=== PATIENT | female | born 1970 | race Caucasian/White ===

== ENCOUNTER 2017-05-26 02:24 | Observation (INO) | payer BC ==
[2017-05-26] MEDS ORDERED: METHYLPREDNISOLONE SOD SUCC/PF 40 MG/ML VIAL IV ONE (02:35)
[2017-05-26] MEDS ORDERED: FAMOTIDINE 10 MG/ML VIAL IV ONE ×2 (02:35→02:45)
[2017-05-26] MEDS ORDERED: diphenhydrAMINE HCL 50 MG/ML VIAL IV ONE ×2 (02:35→02:58)
[2017-05-26] MEDS ORDERED: NORMAL SALINE 1,000 ML IV ONE ×2 (02:36→04:25)
[2017-05-26] MEDS ORDERED: METHYLPREDNISOLONE SOD SUCC/PF 125 MG/2 ML VIAL ONE (02:45)
[2017-05-26] MEDS ORDERED: diphenhydrAMINE HCL 50 MG/ML VIAL ONE ×2 (02:45→02:57)
[2017-05-26] MEDS ORDERED: EPINEPHrine 1 MG/ML AMPUL SC ONE (03:05)
--- NOTE | 2017-05-26 03:05 | ERNOTE ---
Allergy Symptoms - ER Date of Service: 05/26/17 Presenting Symptoms: face swelling Time Seen by Provider: 05/26/17 02:35 Source: patient Exam Limitations: no limitations Immunizations: IMMUNIZATION HX Immunizations Up to Date Yes History of Influenza Vaccine Yes Hx Pneumococcal Vaccination No Allergies/Adverse Reactions: Allergies red dye Adverse Reaction (Mild, Verified 05/26/17 02:28) Hives Sulfa (Sulfonamide Antibiotics) [Sulfa(Sulfonamide Antibiotics)] Adverse Reaction (Mild, Verified 05/26/17 02:28) RASH Home Medications: HOME MEDICATIONS Multivitamin [One Daily Essential] 1 each PO DAILY 02/01/16 [Last Taken Unknown] Tolterodine Tartrate [Detrol LA] 8 mg PO DAILY 02/01/16 [Last Taken Unknown] Doxycycline Hyclate [Morgidox] 100 mg PO DAILY 05/26/17 [Last Taken Unknown] - History of Present Illness Narrative: Woke up at 1:11 AM today with severe itching all over and swelling of her lip. She is not sure what she ingested and she is not sure what she is allergic to. The symptoms woke her up. Subsequently she presented to the emergency room Review of Systems - Review of Systems Constitutional: Present: no symptoms reported, other - itching all over EYE: Present: no symptoms reported ENT: Present: other - swelling of the lip Skin: Present: other - patient has hives all over her back and on her face she does have swelling of her left aspect of her lower lip there is a significant amount of edema and redness also underneath both eyes. - Patient's Past Medical History Patient History - Medical: No pertinent hx Patient History - Cardiac/Respiratory: No pertinent hx Patient History - Cancer: No Hx of Cancer Patient History - Surgical Procedures: Cholecystectomy, Tubal Ligation, T & A Patient History - Other: None LMP (females 10-50): 1 month - Social History Living Situations: home Psych History: Hx of Anxiety Smoking Status: Former smoker Have you smoked in the past 12 months: No Do you dip or chew tobacco: No Alcohol Use: occasionally Drug Use: none - Immunizations Immunizations Up to Date: Yes Hx Pneumococcal Vaccination: No History of Influenza Vaccine: Yes ED Progress - Vital Signs Patient's Vital Signs:: I have reviewed the patient's vital signs. Vital Signs: Vital Signs 11/13/17 11/13/17 02:29 02:34 Temperature 36.5 C Pulse Rate 91 Respiratory 20 20 Rate Blood Pressure 127/85 O2 Sat by Pulse 100 100 Oximetry - Progress/Reassessment Chief Complaint: Allergic Reaction Plan - Plan Plan: I first saw this patient is 0235, at that time I believed this patient was having a mild reaction to something with manifestation of swelling on the lower lip and hives and swelling underneath both eyes. Patient initially had a very good patent airway. Appropriate medication such as IV Pepcid and IV Solu- Medrol and IV Benadryl was written for. Approximately 0300 patient started coughing and clearing her throat repeat examination her airway with slightly more compromised than before manifested as of swelling in the posterior pharynx and the tongue. This examiner immediately contacted anesthesia services and patient was intubated in anticipation of worsening clinical course, as this allergic reaction has happened relatively fast. The patient's compromise of her airway was progressing despite epinephrine subcutaneous, Solu-Medrol, Pepcid , and Benadryl IV. Patient was subsequently successfully intubated by our anesthesia services. Also our hospitalist with consultation in regards to this patient and patient will be admitted for management of airway. Departure Clinical Impression: Airway compromise Allergic reaction Qualifiers: Encounter type: initial encounter Qualified Code(s): T78.40XA - Allergy, unspecified, initial encounter - Departure Disposition: [facility] Condition: Stable
[2017-05-26] MEDS ORDERED: EPINEPHrine 1 MG/ML AMPUL ONE (03:06)
[2017-05-26] MEDS ORDERED: MIDAZOLAM HCL/PF 5 MG/ML VIAL ONE ×2 (03:17→04:19)
[2017-05-26] MEDS ORDERED: LIDOCAINE HCL 20 ML VIAL ONE (03:20)
[2017-05-26 03:24] LABS: Hematocrit 39.7 % (37.0-47.0); Hemoglobin 13.4 gm/dL (12.5-16.0); Mean Cell Volume 87.4 fl (78-100); Mean Corpuscular Hemoglobin 29.5 pg (27-31); Mean Corpuscular Hgb Conc 33.8 g/dl (32-36); Mean Platelet Volume 11.7 fl (6.0-9.5); Neutrophil # 4.6 K/mm3 (1.3-6.0); Neutrophil % 44.2 % (42-75.0); Platelet Count 250 K/mm3 (150-450); Red Blood Count 4.54 M/mm3 (4.2-5.4); Red Cell Distribution Width 14.3 % (11.5-14.0); White Blood Count 10.5 K/mm3 (4.0-10.5)
[2017-05-26] MEDS ORDERED: PROPOFOL VIAL IV ONE ×2 (03:38→04:24)
[2017-05-26 03:43] LABS: Albumin * 3.5 gm/dl (3.4-5.0); BUN/Creatinine Ratio 23.1 (9.0-21.6); Bilirubin, Total 0.5 mg/dL (0.0-1.1); Ca. Corrected For Albumin 8.3 mg/dL (8.4-10.2); Calcium * 8.2 mg/dL (7.9-10.9); Total Protein 6.3 gm/dL (6.2-8.2)
[2017-05-26 03:48] LABS: Anion Gap 13.2 mmol/L (6.8-13.8); Potassium 3.2 mmol/L (3.4-4.6)
--- NOTE | 2017-05-26 04:11 | OR ---
Anesthesia Procedure Note - Anesthesia Procedure Note Date of Service: 05/26/17 Narrative: Vital Signs - Last Taken Temp 36.5 C 05/26/17 02:29 Pulse 110 H 05/26/17 03:21 Resp 15 05/26/17 03:21 BP 125/80 05/26/17 03:21 Pulse Ox 100 05/26/17 03:21 05/26/17 04:01 Procedure: Endotracheal intubation Brief history: I was called to the emergency department with a request for emergency endotracheal length patient is a patient experiencing a severe allergic reaction. Ms. Devine awoke this morning at 1:30 with facial swelling and believed she needed to be treated in the emergency department for an allergic reaction. On arrival she had circumoral swelling and some swelling of the tongue. Her symptoms have progressed since arrival to the emergency department and assessment of the emergency department physician weapons officer naval activity related increasing circumoral tongue swelling with the change in mental hilario score. Recently she has developed an occasional cough. The patient was alert and the procedure was described to her. Procedure: After preoxygenation with 100% oxygen per Jah the patient was induced with 50 mg of lidocaine followed by 200 mg of propofol and a total of 80 mg of succinylcholine which includes a pretreatment dose of 5 mg. There were no fasciculations noted and the patient was intubated #7 endotracheal tube using a #3 kaleidoscope blade without difficulty. CO2 was present by both the chemical and later in-line monitor and the endotracheal tube was secured at 20 cm to teeth. A chest x-ray was ordered for confirmation. The patient did regain respiratory effort and was breathing of her own accord after a short period of time at which point she was placed on humidified oxygen per T piece. Procedure was then discussed with the emergency room physician the hospitalist weapons officer naval activity and the who, after the procedure was completed, arrived in the emergency department. Disposition: The patient was then left in the care of emergency department attending and nurses directly attending her care. Her vital signs were stable and spontaneous respirations were adequate.
[2017-05-26] MEDS ORDERED: PROPOFOL 1,000 MG/100 ML PIGGYBACK IV PRN (04:14)
[2017-05-26] MEDS ORDERED: MIDAZOLAM HCL/PF 1 MG/ML VIAL IV ONE (04:25)
[2017-05-26] MEDS ORDERED: diphenhydrAMINE HCL 50 MG/ML VIAL IV PRN (05:21)
[2017-05-26] MEDS ORDERED: BENZOCAINE/MENTHOL 16 EACH BOX MM PRN (05:26)
[2017-05-26] MEDS ORDERED: METHYLPREDNISOLONE SOD SUCC 60 MG in WATER FOR INJ.,BACTERIOSTATIC 0 ML IV SCH (05:30)
[2017-05-26] MEDS ORDERED: FAMOTIDINE 20 MG in DEXTROSE 5 % IN WATER 100 ML IV SCH ×2 (05:30)
[2017-05-26] MEDS ORDERED: METHYLPREDNISOLONE SOD SUCC/PF 125 MG/2 ML VIAL IV SCH (05:45)
--- NOTE | 2017-05-26 06:09 | HP ---
<Adama Reyes - Last Filed: 05/26/17 06:11> Chief Complaint - Chief Complaint Date of Service: 05/26/17 Time of Service: 05:32 Chief Complaint: Hives and oral swelling History of Present Illness: 47 years old female adm to the hospital from ER with reports of hives, swelling underneath the eyes and mouth. PMH significant for rosacea previous allergic reaction and Overactive bladder. Information obtained from ER nurse and pt who is at the bedside. Pt was awaken by constant itching and took Benadryl 50mg before driving herself to the ER. While in ER she was given solumedrol, Pepcid and Benadryl. Upon further re-assessment, pt was observed to have progression of her swelling to the lips, tongue and eyes. per pt have allergy to red dye, before super she eat hamburger meat that had red dye for used as preservative. she was intubated in ER then transferred to the unit. Plan of care discussed with pt he verbalized understanding and agrees. - Patient's Past Medical History Patient History - Medical: Anxiety, Other - over active bladder, rosacea Patient History - Cardiac/Respiratory: No pertinent hx Patient History - Cancer: No Hx of Cancer Patient History - Surgical Procedures: Cholecystectomy, Tubal Ligation, T & A Patient History - Other: None LMP (females 10-50): 1 month - Social History Living Situations: spouse Psych History: Hx of Anxiety Smoking Status: Former smoker Have you smoked in the past 12 months: No Do you dip or chew tobacco: No Alcohol Use: occasionally Drug Use: none - Immunizations Immunizations Up to Date: Yes Hx Pneumococcal Vaccination: No History of Influenza Vaccine: Yes Review Of Systems (GEN) - Review of Systems Generalized/Overall Review: Present: No Symptoms Reported EENTM: Present: Throat Swelling Respiratory: Present: No Symptoms Reported Cardiac: Present: No Symptoms Reported Abdominal: Present: No Symptoms Reported Genitourinary: Present: No Symptoms Reported Musculoskeletal: Present: No Symptoms Reported Neurological: Present: Anxiety Skin: Present: No Symptoms Reported Endocrine: Present: No Symptoms Reported Immunizations: IMMUNIZATION HX Immunizations Up to Date Yes History of Influenza Vaccine Yes Hx Pneumococcal Vaccination No Allergies/Adverse Reactions: Allergies Allergy/AdvReac Type Severity Reaction Status Date / Time red dye AdvReac Mild Hives Verified 05/26/17 02:28 Sulfa (Sulfonamide AdvReac Mild RASH Verified 05/26/17 02:28 Antibiotics) [Sulfa(Sulfonamide Antibiotics)] Home Medications: HOME MEDICATIONS Multivitamin [One Daily Essential] 1 each PO DAILY 02/01/16 [Last Taken Unknown] Tolterodine Tartrate [Detrol LA] 8 mg PO DAILY 02/01/16 [Last Taken Unknown] Diphenhydramine HCl 25 mg PO ONCE #2 capsule 05/26/17 [Last Taken Unknown] Doxycycline Hyclate [Morgidox] 100 mg PO DAILY 05/26/17 [Last Taken Unknown] EPINEPHrine [Epipen] 0.3 mg IJ ONCE #1 auto.injct 05/26/17 [Last Taken Unknown] predniSONE [Deltasone] 20 mg PO ONCE #2 tablet 05/26/17 [Last Taken Unknown] Exam - Exam Vital Signs: Vital Signs - Last Taken Temp 36.5 C 05/26/17 02:29 Pulse 99 05/26/17 04:14 Resp 21 H 05/26/17 04:14 BP 120/59 05/26/17 04:14 Pulse Ox 100 05/26/17 04:14 Constitutional: Present: Alert, Lethargic, Young ENT Exam: Present: hearing grossly normal, other - Endothracheal tube 20cm Eye Exam: bilateral eye: normal inspection Neck: Present: full range of motion Back Exam: Present: normal inspection, no CVA tenderness Respiratory: Present: chest non-tender Cardiovascular/Chest: Present: normal peripheral pulses, regular rate, rhythm, no chest tenderness, no edema Peripheral Pulses: dorsalis-pedis (R): 3+, dorsalis-pedis (L): 3+ Abdomen: Present: Normal bowel sounds, soft, nontender, nondistended, no rebound tenderness Extremity: Present: normal range of motion, non-tender, normal inspection, no pedal edema Skin Exam: Present: warm/dry Neurologic: Present: alert Eye contact: Present: cooperative, good eye contact Thoughts: Present: normal thought pattern Diagnostic Studies: Abnormal Lab Results 05/26/17 05/26/17 Range/Units 03:25 03:25 RDW 14.3 H (11.5-14.0) % MPV 11.7 H (6.0-9.5) fl Immature Gran % (Auto) 0.70 H (0.001-0.429) % Immature Gran # (Auto) 0.07 H (0.000-0.0310) K/mm3 Lymphocytes # 5.0 H (1.5-3.5) k/mm3 Sodium 144 H (132-142) mmol/L Plasma Sodium 144 H (130-142) mmol/L Potassium 3.2 L (3.4-4.6) mmol/L Chloride 107 H (97-106) mmol/L BUN 25 H (3-23) mg/dL Est GFR (Non-Af Amer) 58 L (60-130) mL/min BUN/Creatinine Ratio 23.1 H (9.0-21.6) Calcium Adj for Albumin 8.3 L (8.4-10.2) mg/dL Alkaline Phosphatase 49 L (50-170) U/L Laboratory Results WBC 10.5 K/mm3 (4.0-10.5) 05/26/17 03:25 RBC 4.54 M/mm3 (4.2-5.4) 05/26/17 03:25 Hgb 13.4 gm/dL (12.5-16.0) 05/26/17 03:25 Hct 39.7 % (37.0-47.0) 05/26/17 03:25 MCV 87.4 fl (78-100) 05/26/17 03:25 MCH 29.5 pg (27-31) 05/26/17 03:25 MCHC 33.8 g/dl (32-36) 05/26/17 03:25 RDW 14.3 % (11.5-14.0) H 05/26/17 03:25 Plt Count 250 K/mm3 (150-450) 05/26/17 03:25 MPV 11.7 fl (6.0-9.5) H 05/26/17 03:25 Immature Gran % (Auto) 0.70 % (0.001-0.429) H 05/26/17 03:25 Immature Gran # (Auto) 0.07 K/mm3 (0.000-0.0310) H 05/26/17 03:25 Neutrophils % 44.2 % (42-75.0) 05/26/17 03:25 Lymphocytes % 47.1 % (20-51) 05/26/17 03:25 Monocytes % 6.5 % (0.0-9) 05/26/17 03:25 Eosinophils % 1.1 % (0.0-3.0) 05/26/17 03:25 Basophils % 0.4 % (0.0-1.0) 05/26/17 03:25 Nucleated RBC % 0.0 k/mm3 (0-1) 05/26/17 03:25 Neutrophils # 4.6 K/mm3 (1.3-6.0) 05/26/17 03:25 Lymphocytes # 5.0 k/mm3 (1.5-3.5) H 05/26/17 03:25 Monocytes # 0.7 k/mm3 (0.0-1.0) 05/26/17 03:25 Eosinophils # 0.1 k/mm3 (0.0-0.7) 05/26/17 03:25 Absolute Basophils 0.0 k/mm3 (0.0-0.1) 05/26/17 03:25 Sodium 144 mmol/L (132-142) H 05/26/17 03:25 Plasma Sodium 144 mmol/L (130-142) H 05/26/17 03:25 Potassium 3.2 mmol/L (3.4-4.6) L 05/26/17 03:25 Chloride 107 mmol/L (97-106) H 05/26/17 03:25 Carbon Dioxide 27.0 mmol/L (24-32.6) 05/26/17 03:25 Anion Gap 13.2 mmol/L (6.8-13.8) 05/26/17 03:25 BUN 25 mg/dL (3-23) H 05/26/17 03:25 Creatinine 1.08 mg/dL (0.4-1.4) 05/26/17 03:25 Est GFR (Non-Af Amer) 58 mL/min (60-130) L 05/26/17 03:25 BUN/Creatinine Ratio 23.1 (9.0-21.6) H 05/26/17 03:25 Random Glucose 102 mg/dL (70-110) 05/26/17 03:25 Calcium 8.2 mg/dL (7.9-10.9) 05/26/17 03:25 Calcium Adj for Albumin 8.3 mg/dL (8.4-10.2) L 05/26/17 03:25 Total Bilirubin 0.5 mg/dL (0.0-1.1) 05/26/17 03:25 AST 16 U/L (0-48) 05/26/17 03:25 ALT 23 U/L (19-67) 05/26/17 03:25 Alkaline Phosphatase 49 U/L (50-170) L 05/26/17 03:25 Total Protein 6.3 gm/dL (6.2-8.2) 05/26/17 03:25 Albumin 3.5 gm/dl (3.4-5.0) 05/26/17 03:25 Assessment/Plan - Narrative Narrative: Allergic reaction- per pt had allergic reaction in the past to red dye in food Yesterday for supper she eat had Hamburger meat, that had red dye preservative in it. pt was concerned about having a bad reaction so she took Benadryl 50mg PO at home and drove to the ER In ER despite medical management it was noted pt s/s were getting progressively worst. Continue Benadryl, Pepcid, solumedrol schedule. Code status: Full GI ppx: pepcid VTE ppx; SCD Time 50 minutes, ER records reviewed and case discussed with Dr Potter. - Assessment/Plan (1) Rosacea Problem: Chronic (2) Airway compromise Problem: Acute (3) Allergic reaction Problem: Acute QualifierTitle: Encounter type: initial encounter Qualified Code(s): T78.40XA - Allergy, unspecified, initial encounter (4) Anaphylactic shock due to food additive Problem: Acute QualifierTitle: Encounter type: initial encounter Qualified Code(s): T78.06XA - Anaphylactic reaction due to food additives, initial encounter <Dax Maurice - Last Filed: 05/26/17 18:41> History of Present Illness: I have examined this patient, reviewed the record, agree with the plan, and have directed the care of our nurse practitioner hospitalist Immunizations: IMMUNIZATION HX Immunizations Up to Date Yes History of Influenza Vaccine Yes Hx Pneumococcal Vaccination No Exam - Exam Vital Signs: Vital Signs - Last Taken Temp 37.1 C 05/26/17 14:09 Pulse 110 H 05/26/17 15:00 Resp 18 05/26/17 14:09 BP 134/63 05/26/17 14:09 Pulse Ox 100 05/26/17 14:09 Diagnostic Studies: Abnormal Lab Results 05/26/17 05/26/17 Range/Units 03:25 03:25 RDW 14.3 H (11.5-14.0) % MPV 11.7 H (6.0-9.5) fl Immature Gran % (Auto) 0.70 H (0.001-0.429) % Immature Gran # (Auto) 0.07 H (0.000-0.0310) K/mm3 Lymphocytes # 5.0 H (1.5-3.5) k/mm3 Sodium 144 H (132-142) mmol/L Plasma Sodium 144 H (130-142) mmol/L Potassium 3.2 L (3.4-4.6) mmol/L Chloride 107 H (97-106) mmol/L BUN 25 H (3-23) mg/dL Est GFR (Non-Af Amer) 58 L (60-130) mL/min BUN/Creatinine Ratio 23.1 H (9.0-21.6) Calcium Adj for Albumin 8.3 L (8.4-10.2) mg/dL Alkaline Phosphatase 49 L (50-170) U/L Laboratory Results WBC 10.5 K/mm3 (4.0-10.5) 05/26/17 03:25 RBC 4.54 M/mm3 (4.2-5.4) 05/26/17 03:25 Hgb 13.4 gm/dL (12.5-16.0) 05/26/17 03:25 Hct 39.7 % (37.0-47.0) 05/26/17 03:25 MCV 87.4 fl (78-100) 05/26/17 03:25 MCH 29.5 pg (27-31) 05/26/17 03:25 MCHC 33.8 g/dl (32-36) 05/26/17 03:25 RDW 14.3 % (11.5-14.0) H 05/26/17 03:25 Plt Count 250 K/mm3 (150-450) 05/26/17 03:25 MPV 11.7 fl (6.0-9.5) H 05/26/17 03:25 Immature Gran % (Auto) 0.70 % (0.001-0.429) H 05/26/17 03:25 Immature Gran # (Auto) 0.07 K/mm3 (0.000-0.0310) H 05/26/17 03:25 Neutrophils % 44.2 % (42-75.0) 05/26/17 03:25 Lymphocytes % 47.1 % (20-51) 05/26/17 03:25 Monocytes % 6.5 % (0.0-9) 05/26/17 03:25 Eosinophils % 1.1 % (0.0-3.0) 05/26/17 03:25 Basophils % 0.4 % (0.0-1.0) 05/26/17 03:25 Nucleated RBC % 0.0 k/mm3 (0-1) 05/26/17 03:25 Neutrophils # 4.6 K/mm3 (1.3-6.0) 05/26/17 03:25 Lymphocytes # 5.0 k/mm3 (1.5-3.5) H 05/26/17 03:25 Monocytes # 0.7 k/mm3 (0.0-1.0) 05/26/17 03:25 Eosinophils # 0.1 k/mm3 (0.0-0.7) 05/26/17 03:25 Absolute Basophils 0.0 k/mm3 (0.0-0.1) 05/26/17 03:25 Sodium 144 mmol/L (132-142) H 05/26/17 03:25 Plasma Sodium 144 mmol/L (130-142) H 05/26/17 03:25 Potassium 3.2 mmol/L (3.4-4.6) L 05/26/17 03:25 Chloride 107 mmol/L (97-106) H 05/26/17 03:25 Carbon Dioxide 27.0 mmol/L (24-32.6) 05/26/17 03:25 Anion Gap 13.2 mmol/L (6.8-13.8) 05/26/17 03:25 BUN 25 mg/dL (3-23) H 05/26/17 03:25 Creatinine 1.08 mg/dL (0.4-1.4) 05/26/17 03:25 Est GFR (Non-Af Amer) 58 mL/min (60-130) L 05/26/17 03:25 BUN/Creatinine Ratio 23.1 (9.0-21.6) H 05/26/17 03:25 Random Glucose 102 mg/dL (70-110) 05/26/17 03:25 Calcium 8.2 mg/dL (7.9-10.9) 05/26/17 03:25 Calcium Adj for Albumin 8.3 mg/dL (8.4-10.2) L 05/26/17 03:25 Total Bilirubin 0.5 mg/dL (0.0-1.1) 05/26/17 03:25 AST 16 U/L (0-48) 05/26/17 03:25 ALT 23 U/L (19-67) 05/26/17 03:25 Alkaline Phosphatase 49 U/L (50-170) L 05/26/17 03:25 Total Protein 6.3 gm/dL (6.2-8.2) 05/26/17 03:25 Albumin 3.5 gm/dl (3.4-5.0) 05/26/17 03:25 Assessment/Plan - Assessment/Plan (1) Anaphylactic reaction Problem: Acute (2) Airway compromise Problem: Acute (3) Allergic reaction Problem: Acute Qualifiers: Encounter type: initial encounter Qualified Code(s): T78.40XA - Allergy, unspecified, initial encounter (4) Rosacea Problem: Chronic
[2017-05-26] MEDS ORDERED: ONDANSETRON HCL/PF 2 MG/ML VIAL IV PRN (06:51)
[2017-05-26] MEDS: METHYLPREDNISOLONE SOD SUCC 60 MG in WATER FOR INJ.,BACTERIOSTATIC 0 ML IV SCH ×2 (07:13→11:31)
[2017-05-26] MEDS: LORazepam 2 MG/ML DISP.SYRIN IV PRN ×2 (07:27→08:23)
[2017-05-26] MEDS: POTASSIUM CHLORIDE 100 ML IV SCH ×2 (07:54→11:30)
--- NOTE | 2017-05-26 09:13 | PN ---
Ivet Note - Interim Narrative: 05/26/17 09:05 Patient was evaluated in the SCU. Patient intubated for airway protection. Was on propofol for sedation during and after intubation. Patient was awakened on propofol and tolerating. In process to extubate she was weaned off propofol and give IV ativan 1mg prn restlessness. I examined the patient and found hives have resolved. No swelling of the neck. Patient is alert and answers questions appropriately. Respiratory extubated the patient with this physician and two nursing staff present with crash cart nearby. Endotracheal tube removed without difficulty. Patient able to talk following removal. Swallowing evaluated and intact. Will continue to monitor in SCU today. Will continue allergy medications.
[2017-05-26] MEDS: diphenhydrAMINE HCL 50 MG CAPSULE PO SCH ×2 (11:44→16:06)
[2017-05-26 14:09] VITALS: BP 134/63
--- NOTE | 2017-05-26 18:12 | DS ---
(1) Anaphylactic reaction Problem: Acute (2) Airway compromise Problem: Acute (3) Allergic reaction Problem: Acute Qualifiers: Encounter type: initial encounter Qualified Code(s): T78.40XA - Allergy, unspecified, initial encounter (4) Rosacea Problem: Chronic Description of Stay: Presented with airway compromise and resuscitated, including brief intubation. Doing much better now, and ready to go home. In the past, trouble with red dye. This time, perhaps related to ibuprofen, but uncertain. Ate out last night. Procedures Performed: none Discharge Disposition: Home self care Disposition: Home self-care Condition: Good Discharge Activity: Activity as tolerated Discharge Diet: General/regular food Referrals: Dax Maurice MD [Primary Care Provider] - Problem Oriented Discharge Instructions to Patient/Family: Anaphylactic Reaction, [id number] Additional Patient Instructions (free text): Follow up with Dr. Bhatti in 1 week. No aspirin or Motrin or any medicine like Motrin ever. The only over the counter pain medicine safe for you to take is tylenol. Prescriptions (Any new or edited meds): Diphenhydramine HCl 25 mg PO ONCE #2 capsule EPINEPHrine [Epipen] 0.3 mg IJ ONCE #1 auto.injct predniSONE [Deltasone] 20 mg PO ONCE #2 tablet Complete Home Medications List: Complete Home Medication List: Multivitamin [One Daily Essential] 1 each PO DAILY 02/01/16 Tolterodine Tartrate [Detrol LA] 8 mg PO DAILY 02/01/16 Diphenhydramine HCl 25 mg PO ONCE #2 capsule 05/26/17 Doxycycline Hyclate [Morgidox] 100 mg PO DAILY 05/26/17 EPINEPHrine [Epipen] 0.3 mg IJ ONCE #1 auto.injct 05/26/17 predniSONE [Deltasone] 20 mg PO ONCE #2 tablet 05/26/17
[2017-05-26] MEDS ORDERED: FAMOTIDINE 20 MG TABLET PO SCH (21:00)
[2017-05-27] MEDS ORDERED: TOLTERODINE TARTRATE 4 MG CAPSULE PO SCH (09:00)
[2017-05-27] MEDS ORDERED: DOXYCYCLINE HYCLATE 100 MG TABLET PO SCH (09:00)
[2017-05-27] MEDS ORDERED: MULTIVITAMIN/IRON/FOLIC ACID 1 TAB TABLET PO SCH (09:00)
== END 2017-05-26 18:40 | disposition home or self-care (01) ==
LOC: ER 02:24 → SCU 03:22 → INTOOBSV 03:22
PROVIDERS: ADMIT Nurse Practitioner; ATTEND Allergy & Immunology
PROC: 0BH17EZ Insertion of Endotracheal Airway into Trachea, Via Natural or Artificial Opening (ICD-10-PCS; principal; 2017-05-26)
DX: T78.06XA Anaphylactic reaction due to food additives, initial encounter (principal); L50.0 Allergic urticaria; Z87.891 Personal history of nicotine dependence; L71.8 Other rosacea
CPT/HCPCS: 31500; 80053; 85025; 96372; 96375; 99291; 99292; G0378; J2405